=== PATIENT | male | born 1975 | race Caucasian/White ===

== ENCOUNTER 2017-08-18 17:12 | Observation (INO) | payer BC ==
[2017-08-18 17:59] VITALS: PULSE 82; BMI 35.9
[2017-08-18 20:00] LABS: BASO % 0.4 % (0-2.0); EOS % 1.4 % (0-4.5); HEMATOCRIT 40.1 % (35.4-49); HEMOGLOBIN 13.1 GM/dL (11.7-16.9); LYMPH % 21.5 % (8-40); MCH 29.4 pg (25.7-33.7); MCHC 32.8 g/dl (32.0-35.9); MEAN CELL VOLUME 89.6 fl (80-96); MEAN PLT VOLUME 9.9 fl (7.5-11.1); MONO % 7.8 % (3.8-10.2); NEUT % 68.9 % (42.8-82.8); PLATELET COUNT 198 K/MM3 (134-434); RBC 4.48 M/mm3 (4.00-5.60); RDW 13.7 % (11.9-15.9); WHITE BLOOD COUNT 11.2 K/mm3 (4.0-10.0)
[2017-08-18 20:21] LABS: ACTIVATED PTT 30.5 SECONDS (26.9-34.4)
[2017-08-18 20:27] LABS: ANION GAP 8 (8-16); BLOOD UREA NITROGEN 26 mg/dL (7-18); CHLORIDE 106 mmol/L (98-107); CO2 25 mmol/L (21-32); GLUCOSE,RANDOM 85 mg/dL (74-106); PHOSPHOROUS 3.8 mg/dL (2.5-4.9); POTASSIUM 4.6 mmol/L (3.5-5.1); SGOT/AST 31 U/L (15-37); SODIUM 139 mmol/L (136-145)
[2017-08-18 20:33] LABS: ALK PHOS 38 U/L (45-117); BILIRUBIN,TOTAL 0.4 mg/dL (0.2-1.0); CREATININE 1.4 mg/dL (0.7-1.3); SGPT/ALT 37 U/L (12-78)
[2017-08-18] MEDS ORDERED: SODIUM CHLORIDE 1,000 ML IV STA (20:37)
--- NOTE | 2017-08-18 20:40 | PDOC ---
History of Present Illness - General History Source: Patient Exam Limitations: No Limitations - History of Present Illness Initial Comments: 08/18/17 20:40 The patient is a 42 year old male, with a significant PMH of HTN, diabetes, and hyperlipidemia who presents to the emergency department with chest pain beginning approximately 3 days ago. The patient describes his chest pain as an intermittent sharp sensation localized midsternally with radiation to the left shoulder, 7/10 in severity which is aggravated by inspiration. The patient also notes associated lightheadedness recently when rising from a bent over position. The patient states he has a history of a pericardial effusion diagnosed here at [facility] on 10/05/2011, which was drained with pericardial window. He states this episode of chest pain feels very similar to his pericardial effusion in the past. The patient denies history of OH or family history of cardiac issues. The patient denies leg swelling. The patient denies shortness of breath, headache and dizziness. Denies fever, chills, nausea, vomit, diarrhea and constipation. Denies dysuria, frequency, urgency and hematuria. Allergies: NKA Past surgical history: Pericardial window (2011). Social history: Former smoker. No reported alcohol or drug use. PCP: Dr. Quispe <Lauri Germain - Last Filed: 08/18/17 20:40> - General History Source: Patient Exam Limitations: No Limitations <Lauri Perez - Last Filed: 08/19/17 00:38> - General Chief Complaint: Chest Pain Stated Complaint: CHEST PAIN Time Seen by Provider: 08/18/17 19:08 Past History <Lauri Germain - Last Filed: 08/18/17 20:40> - Past Medical History COPD: No Diabetes: Yes HTN: Yes Hypercholesterolemia: Yes - Suicide/Smoking/Psychosocial Hx Smoking Status: Yes Smoking History: Never smoked Have you smoked in the past 12 months: No Number of Cigarettes Smoked Daily: 0 Information on smoking cessation initiated: No Hx Alcohol Use: No Drug/Substance Use Hx: No Substance Use Type: None <Lauri Perez - Last Filed: 08/19/17 00:38> - Past Medical History Allergies/Adverse Reactions: Allergies Allergy/AdvReac Type Severity Reaction Status Date / Time No Known Allergies Allergy Verified 08/18/17 17:52 Home Medications: Ambulatory Orders Atorvastatin Ca [Lipitor] 20 mg PO DAILY #0 tablet 10/08/11 Fenofibric Acid [Trilipix -] 135 mg PO DAILY #0 cap 10/08/11 Nebivolol HCl [Bystolic] 5 mg PO DAILY #0 tablet 10/08/11 Amlodipine Bes/Olmesartan Med [Bia 5-20 mg Tablet] 1 each PO DAILY 08/18/17 metFORMIN HCL [Glucophage -] 500 mg PO TID 08/18/17 Review of Systems - Review of Systems Able to Perform ROS?: Yes Comments:: 08/18/17 20:40 GENERAL/CONSTITUTIONAL: No fever or chills. No weakness. HEAD, EYES, EARS, NOSE AND THROAT: No change in vision. No ear pain or discharge. No sore throat. CARDIOVASCULAR: (+) Chest pain, aggravated by inspiration. No shortness of breath. RESPIRATORY: No cough, wheezing, or hemoptysis. GASTROINTESTINAL: No nausea, vomiting, diarrhea or constipation. GENITOURINARY: No dysuria, frequency, or change in urination. MUSCULOSKELETAL: No joint or muscle swelling or pain. No neck or back pain. SKIN: No rash NEUROLOGIC: (+) Lightheadedness. No headache, vertigo, loss of consciousness, or change in strength. ENDOCRINE: No increased thirst. No abnormal weight change. HEMATOLOGIC/LYMPHATIC: No anemia, easy bleeding, or history of blood clots. ALLERGIC/IMMUNOLOGIC: No hives or skin allergy. <Lauri Germain - Last Filed: 08/18/17 20:40> *Physical Exam - Vital Signs Last Vital Signs Temp Pulse Resp BP Pulse Ox 98.2 F 82 16 125/81 98 08/18/17 20:15 08/18/17 20:15 08/18/17 20:15 08/18/17 20:15 08/18/17 20:15 - Physical Exam Comments: 08/18/17 20:40 GENERAL: Awake, alert, and fully oriented, in no acute distress HEAD: No signs of trauma EYES: PERRLA, EOMI, sclera anicteric, conjunctiva clear ENT: Auricles normal inspection, hearing grossly normal, nares patent, oropharynx clear without exudates. Moist mucosa NECK: Normal ROM, supple, no lymphadenopathy, JVD, or masses LUNGS: Breath sounds equal, clear to auscultation bilaterally. No wheezes, and no crackles HEART: Regular rate and rhythm, normal S1 and S2, no murmurs, rubs or gallops ABDOMEN: Soft, nontender, normoactive bowel sounds. No guarding, no rebound. No masses EXTREMITIES: Normal range of motion, no edema. No clubbing or cyanosis. No cords, erythema, or tenderness NEUROLOGICAL: Cranial nerves II through XII grossly intact. Normal speech, normal gait SKIN: Warm, Dry, normal turgor, no rashes or lesions noted. <Lauri Germain - Last Filed: 08/18/17 20:40> - Vital Signs Last Vital Signs Temp Pulse Resp BP Pulse Ox 98.2 F 82 16 125/81 98 08/18/17 20:15 08/18/17 20:15 08/18/17 20:15 08/18/17 20:15 08/18/17 20:15 <Lauri Perez - Last Filed: 08/19/17 00:38> Heart Score/ECG Review #1 ECG reviewed & interpreted by me at: 21:40 08/18/17 21:57 NSR 84, no std/anjana, normal axis, normal intervals, QTC 432 msec <Lauri Perez - Last Filed: 08/19/17 00:38> ED Treatment Course - LABORATORY CBC & Chemistry Diagram: 08/18/17 19:45 08/18/17 19:50 - ADDITIONAL ORDERS Additional order review: Laboratory Results 08/18/17 19:50 Sodium 139 Potassium 4.6 Chloride 106 Carbon Dioxide 25 Anion Gap 8 BUN 26 H D Creatinine 1.4 H D Creat Clearance w eGFR 55.05 Random Glucose 85 Calcium 9.0 Phosphorus 3.8 D Magnesium 2.0 Total Bilirubin 0.4 AST 31 ALT 37 D Alkaline Phosphatase 38 L Creatine Kinase 473 H Troponin I < 0.02 Total Protein 8.0 Albumin 4.0 D <Lauri Germain - Last Filed: 08/18/17 20:40> - LABORATORY CBC & Chemistry Diagram: 08/18/17 19:45 08/18/17 19:50 - ADDITIONAL ORDERS Additional order review: Laboratory Results 08/18/17 19:50 Sodium 139 Potassium 4.6 Chloride 106 Carbon Dioxide 25 Anion Gap 8 BUN 26 H D Creatinine 1.4 H D Creat Clearance w eGFR 55.05 Random Glucose 85 Calcium 9.0 Phosphorus 3.8 D Magnesium 2.0 Total Bilirubin 0.4 AST 31 ALT 37 D Alkaline Phosphatase 38 L Creatine Kinase 473 H Troponin I < 0.02 Total Protein 8.0 Albumin 4.0 D - RADIOLOGY Radiology Studies Ordered: Category Date Time Status CHEST CTA [CT] Stat CT Scan 08/18/17 19:16 Ordered <AnaLauri - Last Filed: 08/19/17 00:38> Medical Decision Making - Medical Decision Making 08/18/17 20:37 A portion of this note was documented by scribe services under my direction. I have reviewed the details of the note, within reason, and agree with the documentation with the following case summary and management plan written by me. Patient treated in the ED. Nursing notes are reviewed and incorporated into the medical decision-making. Vital signs reviewed. Peripheral IV access obtained by the nurse, laboratory studies are drawn and sent, reviewed and interpreted by myself. Vital Signs Temp Pulse Resp BP Pulse Ox 98.2 F 82 16 125/81 98 08/18/17 20:15 08/18/17 20:15 08/18/17 20:15 08/18/17 20:15 08/18/17 20:15 42-year-old male with past medical history of hypertension, diabetes, hyperlipidemia, former smoker, distant history of pericardial effusion status post pericardial window, unclear etiology for the pericolic effusion presents with chest pain for 3 days. Patient reports intermittent and midsternal sharp chest pain that is pleuritic. Denies fevers or chills or cough. Denies shortness of breath, diaphoresis, nausea or vomiting. Patient states that the symptoms are somewhat positional but feels exactly like his prior pericardial effusion. Patient's PMD had contacted me and is aware of the patient's chest pain. Patient denies any prior history of deep venous on pulses, pulmonary embolism, acute coronary syndrome. Reportedly had an echocardiogram one year ago that was normal. Never had a stress test. Differential includes pulmonary embolism, pericarditis, pericardial effusion, acute coronary syndrome. We'll obtain blood work including troponin, EKG and a CAT scan of the chest and reevaluate. 08/18/17 22:14 Cr 1.4. Will still obtain a CTA PE. Risks and benefits were discussing regarding the CT scan with IV contrast. Given the concerns for potential PE, pt consents for IV contrast study. 08/19/17 00:14 CT shows: small pericardial effusion. No PE 08/19/17 00:37 CBC, BMP 08/18/17 19:45 08/18/17 19:50 CMP Sodium 139 mmol/L (136-145) 08/18/17 19:50 Potassium 4.6 mmol/L (3.5-5.1) 08/18/17 19:50 Chloride 106 mmol/L (98-107) 08/18/17 19:50 Carbon Dioxide 25 mmol/L (21-32) 08/18/17 19:50 Anion Gap 8 (8-16) 08/18/17 19:50 BUN 26 mg/dL (7-18) H D 08/18/17 19:50 Creatinine 1.4 mg/dL (0.7-1.3) H D 08/18/17 19:50 Creat Clearance w eGFR 55.05 (>60) 08/18/17 19:50 Random Glucose 85 mg/dL (74-106) 08/18/17 19:50 Calcium 9.0 mg/dL (8.5-10.1) 08/18/17 19:50 Phosphorus 3.8 mg/dL (2.5-4.9) D 08/18/17 19:50 Magnesium 2.0 mg/dL (1.8-2.4) 08/18/17 19:50 Total Bilirubin 0.4 mg/dL (0.2-1.0) 08/18/17 19:50 AST 31 U/L (15-37) 08/18/17 19:50 ALT 37 U/L (12-78) D 08/18/17 19:50 Alkaline Phosphatase 38 U/L (45-117) L 08/18/17 19:50 Creatine Kinase 473 IU/L (39-308) H 08/18/17 19:50 Creatine Kinase Index 0.9 % (0.0-5.0) 08/18/17 19:50 CK-MB (CK-2) 4.665 ng/mL (0.5-3.6) H 08/18/17 19:50 Troponin I < 0.02 ng/ml (0.00-0.05) 08/18/17 19:50 Total Protein 8.0 g/dl (6.4-8.2) 08/18/17 19:50 Albumin 4.0 g/dl (3.4-5.0) D 08/18/17 19:50 Given patient's prior history of pericardial effusion require a window, and given similar symptoms as prior event, will admit patient to the hospital. [facility] discussed with [facility]. Will admit to tele obs. Case discussed in detail with admitting physician including history, physical exam and ancillary studies. Admitting physician has assumed care for the patient, will follow all pending diagnostics and will complete the evaluation and treatment. <Lauri Perez - Last Filed: 08/19/17 00:38> *DC/Admit/Observation/Transfer - Attestations Scribe Attestion: 08/18/17 20:40 Documentation prepared by Lauri Germain, acting as medical record coder for Lauri Perez MD. <Lauri Germain - Last Filed: 08/18/17 20:40> - Discharge Dispostion Decision to Admit order: Yes <Lauri Perez - Last Filed: 08/19/17 00:38> Diagnosis at time of Disposition: Pericardial effusion - Discharge Dispostion Condition at time of disposition: Stable
[2017-08-18 21:20] LABS: INR 1.1 (0.82-1.09); PROTHROMBIN TIME (PATIENT) 12.4 SEC (9.7-13.0)
--- NOTE | 2017-08-19 01:37 | HP ---
CHIEF COMPLAINT: chest pain PCP: Brittaney HISTORY OF PRESENT ILLNESS: This is a 42 year old male with a past medical history significant for HTN, HLD , DM, pericardial effusion s/p window 2011 who presented to the ED with chest pain x 3 days. He states the pain is in his upper right chest and radiates to the center of his chest. It is worse with moving his arm and taking a deep breath. He denies cough. He reports that today when he bent over it was difficult for him to breathe. He states that he was having dizziness when he had his pericardial effusion in 2011 but denies any dizzy spells presently. ER course was notable for: (1) CTA with small pericardial effusion (2) trop negative (3) BUN 26, Cr 1.4 Recent Travel: pt denies PAST MEDICAL HISTORY: HTN, HLD, pericardial effusion s/p window 2011, DM PAST SURGICAL HISTORY: pericardial window 2011 Social History: Smoking: quit age 37, 20 pack year history Alcohol: pt denies Drugs: pt denies Family History: mother with DM father age 45, PNA, ruptured esophagus during intubation sister with DM Allergies No Known Allergies Allergy (Verified 08/18/17 17:52) HOME MEDICATIONS: 3 Medication Instructions Recorded Atorvastatin Ca [Lipitor] 20 mg PO DAILY #0 tablet 10/08/11 Fenofibric Acid [Trilipix -] 135 mg PO DAILY #0 cap 10/08/11 Nebivolol HCl [Bystolic] 5 mg PO DAILY #0 tablet 10/08/11 Amlodipine Bes/Olmesartan Med 1 each PO DAILY 08/18/17 [Bia 5-20 mg Tablet] metFORMIN HCL [Glucophage -] 500 mg PO TID 08/18/17 REVIEW OF SYSTEMS CONSTITUTIONAL: Absent: fever, chills, diaphoresis, generalized weakness, malaise, loss of appetite, weight change HEENT: Absent: rhinorrhea, nasal congestion, throat pain, throat swelling, difficulty swallowing, mouth swelling, ear pain, eye pain, visual changes CARDIOVASCULAR: Present: chest pain Absent: syncope, palpitations, irregular heart rate, lightheadedness, peripheral edema RESPIRATORY: Present: shortness of breath Absent: cough, dyspnea with exertion, orthopnea, wheezing, stridor, hemoptysis GASTROINTESTINAL: Absent: abdominal pain, abdominal distension, nausea, vomiting, diarrhea, constipation, melena, hematochezia GENITOURINARY: Absent: dysuria, frequency, urgency, hesitancy, hematuria, flank pain, genital pain MUSCULOSKELETAL: Absent: myalgia, arthralgia, joint swelling, back pain, neck pain SKIN: Absent: rash, itching, pallor HEMATOLOGIC/IMMUNOLOGIC: Absent: easy bleeding, easy bruising, lymphadenopathy, frequent infections ENDOCRINE: Absent: unexplained weight gain, unexplained weight loss, heat intolerance, cold intolerance NEUROLOGIC: Absent: headache, focal weakness or paresthesias, dizziness, unsteady gait, seizure, mental status changes, bladder or bowel incontinence PSYCHIATRIC: Absent: anxiety, depression, suicidal or homicidal ideation, hallucinations. PHYSICAL EXAMINATION Vital Signs - 24 hr 3 08/18/17 08/18/17 08/18/17 17:15 20:15 23:20 Temperature 98.9 F 98.2 F 98.6 F Pulse Rate 82 Pulse Rate [ 82 82 Left] Respiratory 18 16 17 Rate Blood Pressure 116/72 Blood Pressure 125/81 129/84 [Left Arm] O2 Sat by Pulse 100 98 98 Oximetry (%) GENERAL: Awake, alert, and fully oriented, in no acute distress. HEAD: Normal with no signs of trauma. EYES: Pupils equal, round and reactive to light, extraocular movements intact, sclera anicteric, conjunctiva clear. No lid lag. EARS, NOSE, THROAT: Ears normal, nares patent, oropharynx clear without exudates. Moist mucous membranes. NECK: Normal range of motion, supple without lymphadenopathy, JVD, or masses. LUNGS: Breath sounds equal, clear to auscultation bilaterally. No wheezes, and no crackles. No accessory muscle use. HEART: Regular rate and rhythm, normal S1 and S2 without murmur, rub or gallop. ABDOMEN: Soft, nontender, not distended, normoactive bowel sounds, no guarding, no rebound, no masses. No hepatomegaly or splenomegaly. MUSCULOSKELETAL: Normal range of motion at all joints. No bony deformities or tenderness. No CVA tenderness. UPPER EXTREMITIES: 2+ pulses, warm, well-perfused. No cyanosis. No clubbing. No peripheral edema. LOWER EXTREMITIES: 2+ pulses, warm, well-perfused. No calf tenderness. No peripheral edema. NEUROLOGICAL: Cranial nerves II-XII intact. Normal speech. Normal gait. PSYCHIATRIC: Cooperative. Good eye contact. Appropriate mood and affect. SKIN: Warm, dry, normal turgor, no rashes or lesions noted, normal capillary refill. Laboratory Results - last 24 hr 3 08/18/17 08/18/17 08/18/17 08/18/17 19:45 19:45 19:50 23:59 WBC 11.2 H RBC 4.48 Hgb 13.1 Hct 40.1 MCV 89.6 MCH 29.4 MCHC 32.8 RDW 13.7 Plt Count 198 D MPV 9.9 D Absolute Neuts (auto) 7.7 Neutrophils % 68.9 Lymphocytes % 21.5 D Monocytes % 7.8 Eosinophils % 1.4 Basophils % 0.4 Nucleated RBC % 0 PT with INR 12.40 INR 1.10 PTT (Actin FS) 30.5 Sodium 139 Potassium 4.6 Chloride 106 Carbon Dioxide 25 Anion Gap 8 BUN 26 H D Creatinine 1.4 H D Creat Clearance w eGFR 55.05 Random Glucose 85 Calcium 9.0 Phosphorus 3.8 D Magnesium 2.0 Total Bilirubin 0.4 AST 31 ALT 37 D Alkaline Phosphatase 38 L Creatine Kinase 473 H 385 H Creatine Kinase Index 0.9 0.8 CK-MB (CK-2) 4.665 H 3.26 Troponin I < 0.02 < 0.02 Total Protein 8.0 Albumin 4.0 D ECG Normal sinus rhythm vent rate 83, QTC 423 flattened T in lead 3, no acute ST/T wave changes Radiology Reports CTA chest THIS IS A PRELIMINARY REPORT FROM [facility] No pulmonary embolism. No aortic dissection or aneurysm. No pneumonia or pleural effusions. Small pericardial effusion. Probable hepatosplenomegaly, although liver incompletely seen. Small left renal cyst. Individualized dose optimization techniques were used for this CT. THIS DOCUMENT HAS BEEN ELECTRONICALLY SIGNED Zarina Dennis M.D. 08/19/2017 00:08 EST ASSESSMENT/PLAN: 42yM with PMH HTN, HLD, pericardial effusion, DM presented to the ED with chest pain. Pericardial effusion - small pericardial effusion on CT scan - Echo - cardiology consult Chest pain - trop neg x 2, 3rd in am - cardiology consult - echo MAYTE vs CKD - Pt Cr trended down from 1.3 to 0.9 on admission in 2011 - received 1L ns in ed. repeat bmp in am - hold olmesartan - renal consult if not improving HTN/HLD - cont home meds except ARB, hold for MAYTE DM - hold metformin, received IV contrast DVT PPX - heparin deferred, anticipated LOS less than 48h FEN - tolerating po - BMP in am - diabetic low sodium diet Dispo: pt currently requires further observation for management of his emergent condition. Visit type - Emergency Visit Emergency Visit: Yes ED Registration Date: 08/18/17 Care time: The patient presented to the Emergency Department on the above date and was hospitalized for further evaluation of their emergent condition. - New Patient This patient is new to me today: Yes Date on this admission: 08/19/17 - Critical Care Critical Care patient: No Hospitalist Screening - Colonoscopy Questionnaire Colonoscopy Questionnaire: Colonoscopy Questionnaire - Patient: 50 - 75 years old and never had a screening colonoscopy: No History of colon or rectal polyps, or CA: No History of IBD, Crohn's disease or UC: No History of abdominal radiation therapy as a child: No - Relative: 1 with colon or rectal CA, or polyps at age 60 or younger: No Colon or rectal CA diagnosed at age 45 or younger: No Multiple relatives with colon or rectal CA: No - Outcome: Screening Result: Negative Screen
[2017-08-19 06:19] VITALS: BP 134/77; TEMP 97.9
[2017-08-19 06:28] LABS: BASO % 0.4 % (0-2.0); EOS % 1.8 % (0-4.5); HEMATOCRIT 36.8 % (35.4-49); HEMOGLOBIN 12.4 GM/dL (11.7-16.9); LYMPH % 25.6 % (8-40); MCH 29.9 pg (25.7-33.7); MCHC 33.7 g/dl (32.0-35.9); MEAN CELL VOLUME 88.8 fl (80-96); MEAN PLT VOLUME 9.6 fl (7.5-11.1); MONO % 8.7 % (3.8-10.2); NEUT % 63.5 % (42.8-82.8); PLATELET COUNT 170 K/MM3 (134-434); RBC 4.15 M/mm3 (4.00-5.60); RDW 13.4 % (11.9-15.9); WHITE BLOOD COUNT 8.9 K/mm3 (4.0-10.0)
[2017-08-19 06:55] LABS: ANION GAP 7 (8-16); BLOOD UREA NITROGEN 18 mg/dL (7-18); CHLORIDE 107 mmol/L (98-107); CO2 26 mmol/L (21-32); CREATININE 1.1 mg/dL (0.7-1.3); GLUCOSE,RANDOM 81 mg/dL (74-106); MAGNESIUM 1.8 mg/dL (1.8-2.4); PHOSPHOROUS 3.6 mg/dL (2.5-4.9); POTASSIUM 4.1 mmol/L (3.5-5.1); SODIUM 140 mmol/L (136-145)
[2017-08-19] MEDS: INSULIN SLIDING SCALE (NOVOLOG) 1 VIAL SQ SCH ×2 (07:07→11:00)
[2017-08-19] MEDS ORDERED: NEBIVOLOL 5 MG TABLET (FP) PO SCH (10:00)
[2017-08-19] MEDS ORDERED: ATORVASTATIN CA 20 MG TABLET (FP) PO SCH (10:00)
[2017-08-19] MEDS ORDERED: amLODIPine BESYLATE 5 MG TABLET (FP) PO SCH (10:00)
[2017-08-19] MEDS ORDERED: PATIENT'S OWN MEDICATION (NON-FORMULARY) (Amlodipine Bes/Olmesartan Med [Azor 5-20 Mg Tabl PO SCH (10:00)
[2017-08-19] MEDS ORDERED: VALSARTAN 160 MG TABLET (UD) PO SCH (10:00)
[2017-08-19] MEDS ORDERED: FENOFIBRIC ACID 135 MG CAP PO SCH (10:00)
--- NOTE | 2017-08-19 10:24 | EKG ---
Test Reason : Blood Pressure : / mmHG Vent. Rate : 083 BPM Atrial Rate : 083 BPM P-R Int : 160 ms QRS Dur : 102 ms QT Int : 360 ms P-R-T Axes : 036 019 031 degrees QTc Int : 423 ms NORMAL SINUS RHYTHM INCOMPLETE RBBB WHEN COMPARED WITH ECG OF 06-OCT-2011 08:47, NO SIGNIFICANT CHANGE WAS FOUND Confirmed by KAMLA DONOHUE MD ([id number]) on 08/19/2017 10:23:36 AM Referred By: Confirmed By:KAMLA DONOHUE MD
--- NOTE | 2017-08-19 14:56 | CON.CARD ---
Consult Consult Specialty:: Cardiology Referred by:: Dr. Quispe Reason for Consultation:: Chest pain - History of Present Illness Chief Complaint: Chest pain History of Present Illness: 42 year old man with a PMHx of HTN, HLD, DM, pericardial effusion s/p window 2011, CKD and gout presented to the ED 08/18/2017 with chest pain x 3 days. The patient had upper right chest and radiates to the center of his chest. It is worse with moving his arm and taking a deep breath. There was no associated SOB, palpitation, dizziness or diaphoresis. He bent over it was difficult for him to breathe on the day of presentation. He states that he was having dizziness when he had his pericardial effusion in 2011 but denies any dizzy spells presently. Echocardiogram 08/19/2017 showed normal LV and RV function with estimated LVEF 55- 60%. Small pericardial effusion without tamponade noted. He was seen in cardiac lab and undergoing nuclear stress test. He was chest pain free at the time of exam. - History Source History Provided By: Patient Limitations to Obtaining History: No Limitations - Alcohol/Substance Use Hx Alcohol Use: No - Smoking History Smoking history: Never smoked Have you smoked in the past 12 months: No Aproximately how many cigarettes per day: 0 Home Medications - Allergies Allergies/Adverse Reactions: Allergies Allergy/AdvReac Type Severity Reaction Status Date / Time No Known Allergies Allergy Verified 08/18/17 17:52 - Home Medications Home Medications: Ambulatory Orders Atorvastatin Ca [Lipitor] 20 mg PO DAILY #0 tablet 10/08/11 Fenofibric Acid [Trilipix -] 135 mg PO DAILY #0 cap 10/08/11 Nebivolol HCl [Bystolic] 5 mg PO DAILY #0 tablet 10/08/11 Amlodipine Bes/Olmesartan Med [Bia 5-20 mg Tablet] 1 each PO DAILY 08/18/17 metFORMIN HCL [Glucophage -] 500 mg PO TID 08/18/17 Review of Systems - Review of Systems Cardiovascular: reports: Chest Pain Respiratory: reports: SOB on Exertion Vital Signs: Vital Signs Temperature 97.9 F 08/19/17 06:18 Pulse Rate 82 08/19/17 06:18 Respiratory Rate 17 08/19/17 06:18 Blood Pressure 134/77 08/19/17 06:18 O2 Sat by Pulse Oximetry (%) 99 08/19/17 06:18 Constitutional: Yes: Well Nourished, Calm, Obese Eyes: Yes: Conjunctiva Clear, EOM Intact HENT: Yes: Atraumatic, Normocephalic Neck: Yes: WNL, Supple, Trachea Midline Respiratory: Yes: Regular, CTA Bilaterally Gastrointestinal: Yes: Normal Bowel Sounds, Soft, Abdomen, Obese Cardiovascular: Yes: WNL, Regular Rate and Rhythm JVD: No Carotid Bruit: No PMI: Non-Displaced Heart Sounds: Yes: S1, S2 Musculoskeletal: Yes: WNL Extremities: Yes: WNL Edema: No Peripheral Pulses WNL: Yes Peripheral Pulses: 2+ Left Carotid, 2+ Right Carotid, 2+ Left Femoral, 2+ Right Femoral - Other Data Labs, Other Data: CBC, BMP 08/19/17 06:00 08/19/17 06:00 INR, PTT INR 1.10 (0.82-1.09) 08/18/17 19:45 Troponin, BNP 08/18/17 08/18/17 08/19/17 19:50 23:59 06:00 Troponin I < 0.02 < 0.02 < 0.02 Troponin, BNP 08/18/17 08/18/17 08/19/17 19:50 23:59 06:00 Troponin I < 0.02 < 0.02 < 0.02 Echo: Report Reviewed Imaging - Results EKG: Image Reviewed (NORMAL SINUS RHYTHM INCOMPLETE RBBB Normal ST and T) Assessment/Plan 42 year old man with a PMHx of HTN, HLD, DM, pericardial effusion s/p window 2011, CKD and gout presented to the ED 08/18/2017 with pleuritic chest pain x 3 days. Echocardiogram 08/19/2017 showed normal LV and RV function with estimated LVEF 55- 60%. Small pericardial effusion without tamponade noted. He was seen in cardiac lab and undergoing nuclear stress test. He was chest pain free at the time of exam. Atypical chest pain, pleuritic in nature, likely due to pericarditis. The patient has multiple risk factors of CAD. There is no evidence of AK or ECG changes of ischemia. May start Colchicine 0.6 mg BID for 2 weeks and decrease to once daily. Repeat echo to follow pericardial effusion in 3-4 weeks. Will follow the nuclear stress test results. Start aspirin 81 mg daily, continue atorvastatin and Bystolic. The patient can be discharge from ED if nuclear stress test is not normal. Please call us for reconsult. We will see the patient in office for follow up.
--- NOTE | 2017-08-19 15:36 | DS ---
Physical Examination Vital Signs: Vital Signs Temperature 97.9 F 08/19/17 06:18 Pulse Rate 82 08/19/17 06:18 Respiratory Rate 17 08/19/17 06:18 Blood Pressure 134/77 08/19/17 06:18 O2 Sat by Pulse Oximetry (%) 99 08/19/17 06:18 Labs: CBC, BMP 08/19/17 06:00 08/19/17 06:00 Discharge Summary Reason For Visit: PERICARDIAL EFFUSION Current Active Problems Pericardial effusion (Acute) Condition: Stable - Instructions - Home Medications Comprehensive Discharge Medication List: Ambulatory Orders Atorvastatin Ca [Lipitor] 20 mg PO DAILY #0 tablet 10/08/11 Fenofibric Acid [Trilipix -] 135 mg PO DAILY #0 cap 10/08/11 Nebivolol HCl [Bystolic] 5 mg PO DAILY #0 tablet 10/08/11 Amlodipine Bes/Olmesartan Med [Bia 5-20 mg Tablet] 1 each PO DAILY 08/18/17 metFORMIN HCL [Glucophage -] 500 mg PO TID 08/18/17
[2017-08-19] MEDS ORDERED: amLODIPine BESYLATE 5 MG TABLET (FP) ONE (17:13)
[2017-08-19] MEDS ORDERED: ATORVASTATIN CA 40 MG TABLET (FP) ONE (17:14)
[2017-08-19] MEDS ORDERED: COLCHICINE 0.6 MG TABLET (FP) ONE (17:14)
[2017-08-19] MEDS ORDERED: ASPIRIN COATED 81 MG TABLET.EC ONE (17:14)
--- NOTE | 2017-08-19 17:29 | PN ---
Progress Note (short form) - Note Progress Note: Treadmill nuclear stress test report reviewed. The patient exercised on the treadmill for 6:47 minutes of Pb protocol to 85% MPHR. No stress induced chest pain or ECG changes of ischemia. SPECT showed mild inferoapical ischemia. GATED study revealed no wall motion abnormalities. Suggest: Risk modification. Add Aspirin. Continue Atorvastatin and Bystolic. Out-pt cardiac follow up. No further cardiac test recommended at this time.
[2017-08-19] MEDS ORDERED: INSULIN SLIDING SCALE (NOVOLOG) 1 VIAL SQ SCH (22:00)
[2017-08-20] MEDS ORDERED: ASPIRIN COATED 81 MG TABLET.EC PO SCH (10:00)
[2017-08-20] MEDS ORDERED: COLCHICINE 0.6 MG TABLET (FP) PO SCH (10:00)
== END 2017-08-19 13:16 | disposition home or self-care (01) ==
LOC: JER 17:12 → JERBED 08-19 00:38 → UNDOADMOB 08-19 00:49
PROVIDERS: ADMIT Internal Medicine; ATTEND Family Medicine
PROC: 3E0337Z Introduction of Electrolytic and Water Balance Substance into Peripheral Vein, Percutaneous Approach (ICD-10-PCS; principal; 2017-08-19)
DX: I31.3 Pericardial effusion (noninflammatory) (principal); R07.9 Chest pain, unspecified; I10 Essential (primary) hypertension; E11.9 Type 2 diabetes mellitus without complications; E78.5 Hyperlipidemia, unspecified; Z79.84 Long term (current) use of oral hypoglycemic drugs; Z87.891 Personal history of nicotine dependence
CPT/HCPCS: 36415; 71275-TC; 78452-TC; 80048; 80053; 80061; 82550; 82553; 82962; 83036; 83721; 83735; 84100; 84443; 84484; 85025; 85610; 85651; 85730; 86140; 93005; 93010; 93017; 93306-TC; 99284-25; A9502; G0378; J7030

== ENCOUNTER → 2023-09-19 | Day surgery (SDC) | payer BC ==
[2023-09-16 09:56] VITALS: BMI 33.9
[2023-09-19 08:27] VITALS: TEMP 98
[2023-09-19 09:00] VITALS: BP 132/69; PULSE 73; RESP 14
== END | disposition home or self-care (01) ==
LOC: JASU-ENDO 10:00
PROVIDERS: ATTEND Internal Medicine Gastroenterology
PROC: 0DBC8ZX Excision of Ileocecal Valve, Via Natural or Artificial Opening Endoscopic, Diagnostic (ICD-10-PCS; 2023-09-19)
PROC: 0DBH8ZX Excision of Cecum, Via Natural or Artificial Opening Endoscopic, Diagnostic (ICD-10-PCS; 2023-09-19)
PROC: 0DBK8ZX Excision of Ascending Colon, Via Natural or Artificial Opening Endoscopic, Diagnostic (ICD-10-PCS; principal; 2023-09-19 08:00)
DX: Z12.11 Encounter for screening for malignant neoplasm of colon (principal); D12.2 Benign neoplasm of ascending colon; K64.8 Other hemorrhoids; K57.30 Diverticulosis of large intestine without perforation or abscess without bleeding; I10 Essential (primary) hypertension; E11.9 Type 2 diabetes mellitus without complications
CPT/HCPCS: 88305-TC

== ENCOUNTER 2023-10-19 15:29 | Inpatient (IN) | payer BC ==
[2023-10-19 15:38] VITALS: BMI 34.3
[2023-10-19] MEDS: SODIUM CHLORIDE 1,000 ML IV STA (16:51)
[2023-10-19 17:08] LABS: HEMATOCRIT 34.8 % (35.4-49); HEMOGLOBIN 11.8 GM/dL (11.7-16.9); MCH 29.3 pg (25.7-33.7); MCHC 33.9 g/dl (32.0-35.9); MEAN CELL VOLUME 86.5 fl (80-96); MEAN PLT VOLUME 8.5 fl (7.5-11.1); PLATELET COUNT 155 10^3/uL (134-434); RBC 4.02 M/mm3 (4.00-5.60); RDW 14.4 % (11.9-15.9); WHITE BLOOD COUNT 7.4 K/mm3 (4.0-10.0)
[2023-10-19 17:23] LABS: POTASSIUM 5.1 mmol/L (3.5-5.1)
[2023-10-19 17:25] LABS: BLOOD UREA NITROGEN 53.9 mg/dL (7-18); CALCIUM 8.9 mg/dL (8.5-10.1)
[2023-10-19 17:29] LABS: CREATININE 2.3 mg/dL (0.55-1.3)
[2023-10-19 17:50] LABS: ANISOCYTOSIS 2+; MACROCYTOSIS 0; TEAR DROP CELLS 1+
[2023-10-19] MEDS ORDERED: INSULIN REGULAR HUMAN 100 UNITS/ML *VIAL ONE (17:51)
[2023-10-19] MEDS: INSULIN REGULAR HUMAN 100 UNITS/ML *VIAL SQ ONE (17:53)
[2023-10-19 18:24] LABS: HIV INTERPRETATION NEGATIVE (NEGATIVE)
[2023-10-19] MEDS: SODIUM CHLORIDE 0.9% 500 ML INFUS.BAG IV ONE (18:59)
[2023-10-19] MEDS ORDERED: INSULIN (LEVEMIR) 100 UNITS/ML UNITS SQ SCH (23:30)
[2023-10-20] MEDS: INSULIN (LEVEMIR) 100 UNITS/ML UNITS SQ SCH (00:37)
[2023-10-20 02:20] VITALS: RESP 18
[2023-10-20] MEDS: INSULIN ASPART SLIDING SCALE (NOVOLOG) 1 VIAL SQ SCH (06:48)
[2023-10-20 07:51] LABS: BASO % 0.6 % (0-2.0); HEMATOCRIT 34.3 % (35.4-49); HEMOGLOBIN 11.6 GM/dL (11.7-16.9); LYMPH % 16.4 % (8-40); MCH 29.3 pg (25.7-33.7); MCHC 33.7 g/dl (32.0-35.9); MEAN CELL VOLUME 86.9 fl (80-96); MEAN PLT VOLUME 8.3 fl (7.5-11.1); MONO % 6.6 % (3.8-10.2); NEUT % 73.4 % (42.8-82.8); PLATELET COUNT 147 10^3/uL (134-434); RBC 3.95 M/mm3 (4.00-5.60); RDW 14.7 % (11.9-15.9); WHITE BLOOD COUNT 7.4 K/mm3 (4.0-10.0)
[2023-10-20 08:05] LABS: POTASSIUM 5.1 mmol/L (3.5-5.1)
[2023-10-20 08:13] LABS: ALBUMIN 3.3 g/dl (3.4-5.0); BLOOD UREA NITROGEN 40.3 mg/dL (7-18)
[2023-10-20 08:16] LABS: CREATININE 1.8 mg/dL (0.55-1.3)
[2023-10-20 08:17] LABS: BILIRUBIN,TOTAL 0.6 mg/dL (0.2-1); TOT PROT 6.9 g/dl (6.4-8.2)
[2023-10-20] MEDS ORDERED: LISINOPRIL 5 MG TABLET PO SCH (10:00)
[2023-10-20] MEDS: LISINOPRIL 10 MG TABLET PO SCH (10:04)
[2023-10-20] MEDS: ASPIRIN COATED 81 MG TABLET.EC PO SCH (10:04)
[2023-10-20] MEDS: SERTRALINE HCL 50 MG TABLET (FP) PO SCH (10:04)
[2023-10-20] MEDS: NIFEdipine E.R 60 MG TABLET PO SCH (10:04)
[2023-10-20 15:27] LABS: ALBUMIN 3.1 g/dl (3.4-5.0); BLOOD UREA NITROGEN 41.4 mg/dL (7-18); CALCIUM 8.8 mg/dL (8.5-10.1)
[2023-10-20 15:31] LABS: CREATININE 2.1 mg/dL (0.55-1.3)
[2023-10-20 15:32] LABS: BILIRUBIN,TOTAL 0.4 mg/dL (0.2-1); TOT PROT 6.6 g/dl (6.4-8.2)
[2023-10-20 17:55] VITALS: BP 140/81; PULSE 70; TEMP 99.1
[2023-10-20 19:51] LABS: EPI CELLS 21 /uL (0-25.1); HYALINE CASTS 0 /uL (0-3.1); PH,URINE 5.5 (5.0-8.0); URINE APPEARANCE CLEAR; URINE BACTERIA 241 /uL (0-1359); URINE BILIRUBIN NEGATIVE (NEGATIVE); URINE COLOR YELLOW; URINE GLUCOSE (UA) 2+ (NEGATIVE); URINE KETONE NEGATIVE (NEGATIVE); URINE LEUK ESTERASE TRACE (NEGATIVE); URINE NITRITE NEGATIVE (NEGATIVE); URINE PROTEIN 2+ (NEGATIVE); URINE RBC 5 /uL (0-23.9); URINE UROBILINOGEN 0.2 mg/dL (0.2-1.0); URINE WBC 64 /uL (0-25.8)
[2023-10-20] MEDS ORDERED: ROSUVASTATIN CA 10 MG TABLET PO SCH (22:00)
== END 2023-10-20 19:06 | disposition home or self-care (01) | DRG 638 ==
LOC: JER 15:29 → JERBED 19:45 → OBSVTOIN 23:15 → J7W 10-20 00:29
PROVIDERS: ATTEND Family Medicine
DX: E11.65 Type 2 diabetes mellitus with hyperglycemia (principal); N17.9 Acute kidney failure, unspecified; E78.5 Hyperlipidemia, unspecified; I10 Essential (primary) hypertension; F32.A Depression, unspecified; M10.9 Gout, unspecified; R79.89 Other specified abnormal findings of blood chemistry; N28.1 Cyst of kidney, acquired; Z91.148 Patient's other noncompliance with medication regimen for other reason
CPT/HCPCS: 36415; 76775-TC; 80048; 80053; 80061; 81003; 82550; 82962; 83036; 84439; 84443; 85025; 85027; 86803; 87389; 93005; 93010; 99285-25; G0378